=== PATIENT | female | born 1995 | race Caucasian/White ===

== ENCOUNTER 2022-05-08 22:41 | Inpatient (IN) | payer SELFPAY ==
[2022-05-08] MEDS ORDERED: Sodium Chloride 0.9% 10 ML Syringe FLUSH PRN (22:43)
[2022-05-08] MEDS ORDERED: LORazepam 2 MG/ML SDV IVPUSH ONE ×2 (22:53→23:02)
[2022-05-08] MEDS ORDERED: Bacitracin Oint 1 GM U/D Packet TOP ONE (23:02)
[2022-05-08 23:18] LABS: ESTIMATED GFR 103 mL/min (>60)
[2022-05-08] MEDS ORDERED: Potassium Chloride 20 MEQ Tab.ER PO ONE (23:26)
[2022-05-09] MEDS ORDERED: Acetaminophen 500 MG Tab PO ONE (05:09)
[2022-05-09] MEDS ORDERED: LORazepam 2 MG/ML SDV IVPUSH ONE (09:39)
[2022-05-09] MEDS ORDERED: Acetaminophen 325 MG Tab PO PRN (12:00)
[2022-05-09] MEDS ORDERED: Polyethylene Glycol 3350 Powder 17 GM Packet PO PRN (12:00)
[2022-05-09] MEDS ORDERED: Bacitracin Oint 1 GM U/D Packet TOP ONE (18:14)
[2022-05-10 05:33] LABS: ESTIMATED GFR 89 mL/min (>60)
== END 2022-05-10 15:48 | DRG 918 ==
LOC: JP.ED 22:41 → JP.ICU 05-09 11:35
PROVIDERS: ADMIT Student in an Organized Health Care Education/Training Program; ATTEND Internal Medicine
PROC: HZ2ZZZZ Detoxification Services for Substance Abuse Treatment (ICD-10-PCS; principal; 2022-05-09)
DX: T43.222A Poisoning by selective serotonin reuptake inhibitors, intentional self-harm, initial encounter (principal); R45.851 Suicidal ideations; F10.129 Alcohol abuse with intoxication, unspecified; E87.6 Hypokalemia; F43.23 Adjustment disorder with mixed anxiety and depressed mood; Z20.822 Contact with and (suspected) exposure to COVID-19; R94.31 Abnormal electrocardiogram [ECG] [EKG]; S61.512A Laceration without foreign body of left wrist, initial encounter; S71.112A Laceration without foreign body, left thigh, initial encounter; T24.012A Burn of unspecified degree of left thigh, initial encounter; T24.011A Burn of unspecified degree of right thigh, initial encounter; X83.8XXA Intentional self-harm by other specified means, initial encounter; X76.XXXA Intentional self-harm by smoke, fire and flames, initial encounter; Y92.89 Other specified places as the place of occurrence of the external cause
CPT/HCPCS: 36415; 80048; 80053; 80143; 80179; 80305-QW; 80307; 82803; 83735; 85025; 93005; 93010; 96374; 96376; 99223; 99239; 99285; 99285-25; A9270-GY; J2060; J3490; U0002